=== PATIENT | male | born 1950 ===

== ENCOUNTER 2018-06-29 05:51 | Observation (INO) | payer SELFPAY ==
--- NOTE | 2018-06-29 06:17 | C.PDOC ---
History Of Present Illness 68 year old male presents to the ED c/o chest pain that started today while at work at 04:30. Patient reports pain worsened with movement, lasted for few minutes and resolved. Patient now reports being pain free, Patient denies fever, chills, headache, visual changes, neck pain, SOB, palpitations, diaphoresis, weakness, numbness. Chief Complaint (Nursing): Chest Pain History Per: Patient History/Exam Limitations: no limitations Onset/Duration Of Symptoms: Hrs (04:30) Current Symptoms Are (Timing): Gone Quality: "Pain" Associated Symptoms: denies: Nausea, Dyspnea, Diaphoresis Exacerbating Factors: Movement Recent travel outside of the [place]: No Additional History Per: Patient Past Medical History Reviewed: Historical Data, Nursing Documentation, Vital Signs Vital Signs: Last Vital Signs Temp 97.6 F 06/29/18 05:53 Pulse 63 06/29/18 05:53 Resp 18 06/29/18 05:53 BP 133/81 06/29/18 05:53 Pulse Ox 100 06/29/18 05:53 Primary Care Provider: Mart Butler - Medical History PMH: HTN Surgical History: No Surg Hx Family History: States: Unknown Family Hx - Social History Hx Alcohol Use: No Hx Substance Use: No - Immunization History Hx Tetanus Toxoid Vaccination: No Hx Influenza Vaccination: No Hx Pneumococcal Vaccination: No Review Of Systems Constitutional: Negative for: Fever, Chills Eyes: Negative for: Vision Change Cardiovascular: Positive for: Chest Pain. Negative for: Palpitations Respiratory: Negative for: Cough, Shortness of Breath Gastrointestinal: Negative for: Nausea, Vomiting, Abdominal Pain Musculoskeletal: Negative for: Neck Pain Skin: Negative for: Rash Neurological: Negative for: Weakness, Numbness, Headache, Dizziness Physical Exam - Physical Exam Appears: Non-toxic, No Acute Distress Skin: Normal Color, Warm, Dry Head: Atraumatic, Normacephalic Eye(s): bilateral: Normal Inspection, PERRL, EOMI Neck: Normal ROM, No Midline Cervical Tenderness, Supple Chest: Symmetrical Cardiovascular: Rhythm Regular Respiratory: Normal Breath Sounds, No Rales, No Rhonchi, No Wheezing Gastrointestinal/Abdominal: Soft, No Tenderness, No Distention Extremity: Normal ROM, No Tenderness, No Swelling Neurological/Psych: Oriented x3, Normal Speech, Normal Cognition Gait: Steady ED Course And Treatment - Laboratory Results Result Diagrams: 06/29/18 06:13 ECG: Interpreted By Me, Viewed By Me ECG Rhythm: Sinus Rhythm, 1st Degree HB ECG Interpretation: Normal, No Acute Changes Interpretation Of ECG: Sinus rhythm with 1st degree AV block, otherwise, normal tracings. Rate From EC O2 Sat by Pulse Oximetry: 100 (ON RA) Pulse Ox Interpretation: Normal Medical Decision Making Medical Decision Making: Plan: * Labs * CXR * EKG * Aspirin 162 mg PO Disposition - Disposition Disposition Time: 07:00 Condition: STABLE Forms: [facility] ([place]) - Clinical Impression Clinical Impression: Chest pain - Scribe Statement The provider has reviewed the documentation as recorded by the Scribe Jean Paul Barcenas All medical record entries made by the Scribe were at my direction and personally dictated by me. I have reviewed the chart and agree that the record accurately reflects my personal performance of the history, physical exam, medical decision making, and the department course for this patient. I have also personally directed, reviewed, and agree with the discharge instructions and disposition.
[2018-06-29 06:22] LABS: BASO % 0.8 % (0.0-2.0); EOS # 0.2 K/uL (0.0-0.7); EOS % 4.3 % (0.0-4.0); HEMOGLOBIN 12.5 g/dL (12.0-18.0); LYMPH # 1.5 K/uL (1.0-4.3); LYMPH % 27.4 % (20.0-40.0); MEAN CELL VOLUME 84.5 fL (80.0-94.0); MEAN CORPUSCULAR HEMOGLOBIN 27.4 pg (27.0-31.0); MEAN CORPUSCULAR HGB CONC 32.4 g/dL (33.0-37.0); MEAN PLATELET VOLUME 11.4 fL (7.2-11.7); MONO # 0.7 K/uL (0.0-0.8); MONO % 13.5 % (0.0-10.0); NRBC % 0.1 % (0.0-2.0); RBC 4.55 Mil/uL (4.40-5.90); RED CELL DISTRIBUTION WIDTH 14.6 % (11.5-14.5); WHITE BLOOD COUNT 5.5 K/uL (4.8-10.8)
[2018-06-29 06:37] LABS: ALB/GLOB RATIO 1.4 (1.0-2.1); ALBUMIN 3.9 g/dL (3.5-5.0); ALT/SGPT 32 U/L (21-72); AST/SGOT 38 U/L (17-59); BLOOD UREA NITROGEN 18 mg/dL (9-20); CALCIUM 9.2 mg/dl (8.6-10.4); GFR NON-AFRICAN AMERICAN > 60
[2018-06-29 06:39] LABS: INR 1.2; PROTHROMBIN TIME 13.6 SECONDS (9.7-12.2)
[2018-06-29 06:47] LABS: B-TYPE NATRIURETIC PEPTIDE 48.2 pg/mL (0-900); CK-MB 3.13 ng/mL (0.0-3.38)
--- NOTE | 2018-06-29 10:24 | RAD ---
HISTORY: chest pain bed 6 COMPARISON: None available. TECHNIQUE: Chest, one view. FINDINGS: Examination limited by habitus and hypoinflation. LUNGS: Mild left basilar atelectasis/infiltrate. Please note that chest x-ray has limited sensitivity for the detection of pulmonary masses. PLEURA: No significant pleural effusion identified. No definite pneumothorax . CARDIOVASCULAR: Borderline enlargement of the cardiomediastinal silhouette. Ectatic aorta containing atherosclerotic calcifications. OSSEOUS STRUCTURES: Degenerative changes of the spine and shoulders. Acromioclavicular arthropathy. VISUALIZED UPPER ABDOMEN: Unremarkable. OTHER FINDINGS: None. IMPRESSION: Hypoinflation. Borderline enlargement of the cardiomediastinal silhouette. Ectatic aorta. Mild left basilar atelectasis/infiltrate.
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
[2018-06-29 10:35] LABS: HDL CHOLESTEROL 31 mg/dL (30-70)
[2018-06-29 10:46] LABS: LDL CHOLESTEROL 136 mg/dL (0-129)
[2018-06-29] MEDS: Naproxen 275 mg Tab PO SCH ×2 (11:00→17:25)
[2018-06-29 14:42] LABS: CK-MB 1.99 ng/mL (0.0-3.38)
--- NOTE | 2018-06-29 16:36 | CP.PCM.DIS ---
<Maverick Guerrero - Last Filed: 06/30/18 15:04> Provider - Provider Date of Admission: 06/29/18 07:56 Attending physician: Darron Gallagher DO Time Spent in preparation of Discharge (in minutes): 45 Hospital Course - Lab Results Lab Results: Most Recent Lab Values WBC 5.5 K/uL (4.8-10.8) 06/29/18 06:13 RBC 4.55 Mil/uL (4.40-5.90) 06/29/18 06:13 Hgb 12.5 g/dL (12.0-18.0) 06/29/18 06:13 Hct 38.5 % (35.0-51.0) 06/29/18 06:13 MCV 84.5 fL (80.0-94.0) 06/29/18 06:13 MCH 27.4 pg (27.0-31.0) 06/29/18 06:13 MCHC 32.4 g/dL (33.0-37.0) L 06/29/18 06:13 RDW 14.6 % (11.5-14.5) H 06/29/18 06:13 Plt Count 111 K/uL (130-400) L 06/29/18 06:13 MPV 11.4 fL (7.2-11.7) 06/29/18 06:13 Neut % (Auto) 54.0 % (50.0-75.0) 06/29/18 06:13 Lymph % (Auto) 27.4 % (20.0-40.0) 06/29/18 06:13 [place] % (Auto) 13.5 % (0.0-10.0) H 06/29/18 06:13 Eos % (Auto) 4.3 % (0.0-4.0) H 06/29/18 06:13 Baso % (Auto) 0.8 % (0.0-2.0) 06/29/18 06:13 Neut # (Auto) 3.0 K/uL (1.8-7.0) 06/29/18 06:13 Lymph # (Auto) 1.5 K/uL (1.0-4.3) 06/29/18 06:13 [place] # (Auto) 0.7 K/uL (0.0-0.8) 06/29/18 06:13 Eos # (Auto) 0.2 K/uL (0.0-0.7) 06/29/18 06:13 Baso # (Auto) 0.0 K/uL (0.0-0.2) 06/29/18 06:13 Differential Comment 06/29/18 06:13 PT 13.6 SECONDS (9.7-12.2) H 06/29/18 06:13 INR 1.2 06/29/18 06:13 APTT 32.0 SECONDS (21-34) 06/29/18 06:13 Sodium 139 mmol/L (132-148) 06/29/18 06:13 Potassium 4.0 mmol/L (3.6-5.2) 06/29/18 06:13 Chloride 101 mmol/L (98-107) 06/29/18 06:13 Carbon Dioxide 30 mmol/L (22-30) 06/29/18 06:13 Anion Gap 12 (10-20) 06/29/18 06:13 BUN 18 mg/dL (9-20) 06/29/18 06:13 Creatinine 0.9 mg/dL (0.8-1.5) 06/29/18 06:13 Est GFR ( Amer) > 60 06/29/18 06:13 Est GFR (Non-Af Amer) > 60 06/29/18 06:13 Random Glucose 98 mg/dL (75-110) 06/29/18 06:13 Calcium 9.2 mg/dl (8.6-10.4) 06/29/18 06:13 Phosphorus 3.4 mg/dL (2.5-4.5) 06/29/18 06:13 Magnesium 1.7 mg/dL (1.6-2.3) 06/29/18 06:13 Total Bilirubin 0.3 mg/dL (0.2-1.3) 06/29/18 06:13 AST 38 U/L (17-59) 06/29/18 06:13 ALT 32 U/L (21-72) 06/29/18 06:13 Alkaline Phosphatase 73 U/L (38-126) 06/29/18 06:13 Total Creatine Kinase 219 U/L (55-170) H 06/29/18 14:08 CK-MB (Mass) 1.99 ng/mL (0.0-3.38) 06/29/18 14:08 Troponin I < 0.0120 ng/mL (0.00-0.120) 06/29/18 14:08 NT-Pro-B Natriuret Pep 48.2 pg/mL (0-900) 06/29/18 06:13 Total Protein 6.7 g/dL (6.3-8.3) 06/29/18 06:13 Albumin 3.9 g/dL (3.5-5.0) 06/29/18 06:13 Globulin 2.8 gm/dL (2.2-3.9) 06/29/18 06:13 Albumin/Globulin Ratio 1.4 (1.0-2.1) 06/29/18 06:13 Triglycerides 109 mg/dL (0-149) 06/29/18 06:13 Cholesterol 184 mg/dL (0-199) 06/29/18 06:13 LDL Cholesterol Direct 136 mg/dL (0-129) H 06/29/18 06:13 HDL Cholesterol 31 mg/dL (30-70) 06/29/18 06:13 TSH 3rd Generation 1.93 mIU/L (0.46-4.68) 06/29/18 06:13 - Hospital Course Hospital Course: PGY1 Medicine Discharge Summary and Hospital Course for Dr. Gallagher Upon Admission: Patient is a 68-year-old M with PMH of HTN who presents with a chief complaint of chest pain. Patient reports that he was lifting heavy weights, and then later that evening he experienced chest pain that he says lasted only a few minutes. Patient reports the pain worsened with movement. Patient rates the pain as 8/10 at its worst and nonradiating. Patient says the pain was pressure-like in quality. Patient otherwise denied nausea, vomiting, diaphoresis, numbness/tingling, abdominal pain, shortness of breath, lower extremity edema, palpitations, and/or diarrhea. Currently, the Patient denies any pain. Please see chart for details and reports. Patient was subsequently admitted for atypical chest pain in order to rule-out ACS. Patient had serial troponins and serial EKG performed. Patient denied any chest pain during the remainder of the hospitalization. All results were unremarkable for ACS. Patient has evidence of 1st degree heart block on EKG x2. Upon discharge, Patient denied pain. Patient was hemodynamically stable and clinically optimized. Patient had no other complaints and wanted to go home. Patient was provided with instructions in both writing and verbally to the level of the Patient's comprehension. Patient both understands and agrees to instructions. Please see chart for details. Patient seen and case discussed with Dr. Aileen Guerrero PGY1 Discharge Exam - Head Exam Head Exam: ATRAUMATIC, NORMAL INSPECTION, NORMOCEPHALIC - Eye Exam Eye Exam: EOMI, Normal appearance Pupil Exam: NORMAL ACCOMODATION - ENT Exam ENT Exam: Mucous Membranes Moist - Respiratory Exam Respiratory Exam: NORMAL BREATHING PATTERN, UNREMARKABLE - Cardiovascular Exam Cardiovascular Exam: REGULAR RHYTHM, +S1, +S2 - GI/Abdominal Exam GI & Abdominal Exam: Normal Bowel Sounds, Soft, Unremarkable. absent: Tenderness - Extremities Exam Extremities exam: full ROM, normal inspection - Back Exam Back exam: NORMAL INSPECTION - Neurological Exam Neurological exam: Alert, CN II-XII Intact, Normal Gait, Oriented x3, Reflexes Normal - Psychiatric Exam Psychiatric exam: Normal Affect, Normal Mood - Skin Skin Exam: Dry, Intact, Normal Color, Warm Discharge Plan - Follow Up Plan Condition: STABLE Disposition: HOME/ ROUTINE Instructions: Heart Healthy Diet, Chest Pain (DC) Additional Instructions: Please follow-up at the neighborhood clinic at [facility] within 3-5 days of being discharged from the hospital Please take your medications as prescribed by your PMD Please return to your nearest ED immediately if you experience recurrence of your symptoms Referrals: [facility] [Outside] <Darron Gallagher - Last Filed: 06/30/18 15:53> Provider - Provider Date of Admission: 06/29/18 07:56 Attending physician: Darron Gallagher DO Hospital Course - Lab Results Lab Results: Most Recent Lab Values WBC 5.5 K/uL (4.8-10.8) 06/29/18 06:13 RBC 4.55 Mil/uL (4.40-5.90) 06/29/18 06:13 Hgb 12.5 g/dL (12.0-18.0) 06/29/18 06:13 Hct 38.5 % (35.0-51.0) 06/29/18 06:13 MCV 84.5 fL (80.0-94.0) 06/29/18 06:13 MCH 27.4 pg (27.0-31.0) 06/29/18 06:13 MCHC 32.4 g/dL (33.0-37.0) L 06/29/18 06:13 RDW 14.6 % (11.5-14.5) H 06/29/18 06:13 Plt Count 111 K/uL (130-400) L 06/29/18 06:13 MPV 11.4 fL (7.2-11.7) 06/29/18 06:13 Neut % (Auto) 54.0 % (50.0-75.0) 06/29/18 06:13 Lymph % (Auto) 27.4 % (20.0-40.0) 06/29/18 06:13 [place] % (Auto) 13.5 % (0.0-10.0) H 06/29/18 06:13 Eos % (Auto) 4.3 % (0.0-4.0) H 06/29/18 06:13 Baso % (Auto) 0.8 % (0.0-2.0) 06/29/18 06:13 Neut # (Auto) 3.0 K/uL (1.8-7.0) 06/29/18 06:13 Lymph # (Auto) 1.5 K/uL (1.0-4.3) 06/29/18 06:13 [place] # (Auto) 0.7 K/uL (0.0-0.8) 06/29/18 06:13 Eos # (Auto) 0.2 K/uL (0.0-0.7) 06/29/18 06:13 Baso # (Auto) 0.0 K/uL (0.0-0.2) 06/29/18 06:13 Differential Comment 06/29/18 06:13 PT 13.6 SECONDS (9.7-12.2) H 06/29/18 06:13 INR 1.2 06/29/18 06:13 APTT 32.0 SECONDS (21-34) 06/29/18 06:13 Sodium 139 mmol/L (132-148) 06/29/18 06:13 Potassium 4.0 mmol/L (3.6-5.2) 06/29/18 06:13 Chloride 101 mmol/L (98-107) 06/29/18 06:13 Carbon Dioxide 30 mmol/L (22-30) 06/29/18 06:13 Anion Gap 12 (10-20) 06/29/18 06:13 BUN 18 mg/dL (9-20) 06/29/18 06:13 Creatinine 0.9 mg/dL (0.8-1.5) 06/29/18 06:13 Est GFR ( Amer) > 60 06/29/18 06:13 Est GFR (Non-Af Amer) > 60 06/29/18 06:13 Random Glucose 98 mg/dL (75-110) 06/29/18 06:13 Calcium 9.2 mg/dl (8.6-10.4) 06/29/18 06:13 Phosphorus 3.4 mg/dL (2.5-4.5) 06/29/18 06:13 Magnesium 1.7 mg/dL (1.6-2.3) 06/29/18 06:13 Total Bilirubin 0.3 mg/dL (0.2-1.3) 06/29/18 06:13 AST 38 U/L (17-59) 06/29/18 06:13 ALT 32 U/L (21-72) 06/29/18 06:13 Alkaline Phosphatase 73 U/L (38-126) 06/29/18 06:13 Total Creatine Kinase 229 U/L (55-170) H 06/29/18 20:12 CK-MB (Mass) 2.47 ng/mL (0.0-3.38) 06/29/18 20:12 Troponin I < 0.0120 ng/mL (0.00-0.120) 06/29/18 20:12 NT-Pro-B Natriuret Pep 48.2 pg/mL (0-900) 06/29/18 06:13 Total Protein 6.7 g/dL (6.3-8.3) 06/29/18 06:13 Albumin 3.9 g/dL (3.5-5.0) 06/29/18 06:13 Globulin 2.8 gm/dL (2.2-3.9) 06/29/18 06:13 Albumin/Globulin Ratio 1.4 (1.0-2.1) 06/29/18 06:13 Triglycerides 109 mg/dL (0-149) 06/29/18 06:13 Cholesterol 184 mg/dL (0-199) 06/29/18 06:13 LDL Cholesterol Direct 136 mg/dL (0-129) H 06/29/18 06:13 HDL Cholesterol 31 mg/dL (30-70) 06/29/18 06:13 TSH 3rd Generation 1.93 mIU/L (0.46-4.68) 06/29/18 06:13 Attending/Attestation - Attestation I have personally seen and examined this patient.: Yes I have fully participated in the care of the patient.: Yes I have reviewed all pertinent clinical information, including history, physical exam and plan: Yes Notes (Text): 06/30/18 15:46 Medical attending: Patient was seen and examined by me. Agree with the above note by the medical collector The patient was not in any acute distress when I came and saw. On exam we walked his around in the hallway and he did not develop chest pain or shortness of breath. The patient's pain was positional and we reviewed the 12 lead EKGs which besides a first degree length - the EKG was fine. The cardiac enzymes were negative as well. Darron Gallagher
[2018-06-29 16:59] VITALS: BP 132/76; PULSE 61; RESP 20; TEMP 97.7; O2SAT 99
[2018-06-29 20:50] LABS: CK-MB 2.47 ng/mL (0.0-3.38)
--- NOTE | 2018-06-30 11:03 | CARD ---
APPROVED REPORT Date of service: 06/29/2018 EKG Measurement Heart [id number] <Conclusion> Normal sinus rhythm Normal ECG
--- NOTE | 2018-06-30 11:03 | CARD ---
APPROVED REPORT Date of service: 06/29/2018 EKG Measurement Heart [id number] <Conclusion> Sinus rhythm with 1st degree AV block Otherwise normal ECG
--- NOTE | 2018-06-30 11:03 | CARD ---
APPROVED REPORT Date of service: 06/29/2018 EKG Measurement Heart [id number] <Conclusion> Sinus rhythm with 1st degree AV block Otherwise normal ECG
== END 2018-06-29 21:45 | disposition home or self-care (01) ==
LOC: C.ER 05:51 → C.6T 07:56
PROVIDERS: ADMIT Hospitalist; ATTEND Hospitalist
DX: R07.9 Chest pain, unspecified (principal); I10 Essential (primary) hypertension; N40.0 Benign prostatic hyperplasia without lower urinary tract symptoms; X50.0XXA Overexertion from strenuous movement or load, initial encounter; E11.9 Type 2 diabetes mellitus without complications; E78.5 Hyperlipidemia, unspecified
CPT/HCPCS: 36415; 71045; 80053; 80061; 83735; 83880; 84100; 84443; 84484; 85025; 85610; 85730; G0378